=== PATIENT | male | born 1995 | race Caucasian/White ===

== ENCOUNTER 2018-04-02 14:00 | Emergency (ER) | payer OTHER, SELFPAY ==
[2018-04-02 14:01] VITALS: BP 121/82; PULSE 97; RESP 26; TEMP 36.6; O2SAT 100; BMI 17.4
--- NOTE | 2018-04-02 14:19 | NURSING ---
NO OLD EKGS
--- NOTE | 2018-04-02 14:41 | EKG12_ITS ---
Test Reason : CP Blood Pressure : / mmHG Vent. Rate : 092 BPM Atrial Rate : 092 BPM P-R Int : 130 ms QRS Dur : 094 ms QT Int : 348 ms P-R-T Axes : 070 080 055 degrees QTc Int : 430 ms Normal sinus rhythm Normal ECG Confirmed by MELANIA GARCIA, STACEY ([id number]), graphic editor ABEL JACKSON ([id number] on 04/04/2018 10:04:52 AM Referred By: ANNABELLE/JUSTUS Confirmed By:STACEY VELÁZQUEZ MD
--- NOTE | 2018-04-02 15:31 | ED.VIS.GEN ---
History of Present Illness Chief Complaint: Chest Pain Detail of Chief Complaint: While driving Informant: Patient Onset: Today Context: Sudden Onset Timing: Intermittent - Duration 2 hours. Patient states her eye made him think about the pain he developed pain again. Quality: Sharp dull Location: Left subclavian region Current Severity: Absent time of exam exacerbated by asking to describe pain. Maximum Severity: Severe Worsened by: Thinking about it Relieved by: Nothing Associated Symptoms: None and no radiation Narrative: Left subclavian chest pain that lasted 2 hours described as a dull aching sensation with no associated symptoms or radiation. No prior history of chest pain. There is no history of PE or DVT or any risk factors. There is no history of iliac disease at early age in the family and he has no known history of congenital heart problems. Nurse informed me that prior to me seeing him he was looking at the monitor became more anxious as he looked at the monitor. When asked if there is a history of anxiety or panic attacks he stated if it is nothing more than I will go home. I informed him that my question very specific asking if he has a history of anxiety, stress reaction or panic attacks. He replied that he is under stress. Prior similar symptoms: No Recent Illness/Hospitalization: No Past Medical History - Allergies and Home Meds Allergies/Adverse Reactions: Allergies No Known Allergies Allergy (Verified 04/02/18 14:04) Primary Care Physician: Liam Lawler MD [Primary Care Provider] - Past Medical History: - - Negative Surgical History: no surgical history Lives: With Family Smoking Status: Never smoker Alcohol: Occasional - 1-2 shots every 2 weeks Drugs: None Review of Systems General: Denies: Chills, Fever, Sweats Eyes: Denies: Visual changes - bilaterally, Diplopia ENT: Denies: Rhinorrhea, Sore throat Cardiovascular: Reports: Chest pain, Heart racing. Denies: Palpitations Respiratory: Denies: Dyspnea, Cough, Dyspnea on exertion, Orthopnea, Paroxysmal nocturnal dyspnea Gastrointestinal: Denies: Abdominal pain, Nausea, Vomiting, Diarrhea, Melena, Hematochezia Genitourinary: Denies: Dysuria, Hematuria, Frequency Musculoskeletal: Denies: Back pain, Extremity Pain Skin: Denies: Rash, Wounds Neurological: Denies: Headache, Weakness, Numbness Psych: Reports: Anxiety Hematologic: Denies: Easy bruising, Easy bleeding Allergy: Denies: Uticaria, Swelling of the mouth Physical Exam Vital Signs/Narrative: Vital Signs Temp Pulse Resp BP Pulse Ox 04/02/18 14:01 97.9 F 97 26 H 121/82 H 100 Inital Vital Signs reviewed: Yes General: Well nourished, Well developed, No Acute Distress Head: Normocephalic, Atraumatic. Negative for: Trauma, Tenderness Eyes: Perrl, EOMI. Negative for: Pale conjunctiva, Scleral icterus ENT: Moist mucous membranes, No rhinorrhea. Negative for: TM's clear, Sinus tenderness Neck: Supple, Nontender. Negative for: No lymphadenopathy, No JVD Cardiovascular: Regular rate, Regular rhythm, No murmurs, Normal S1, Normal S2. Negative for: S3 Respiratory: No distress, CTA bilaterally, Chest nontender. Negative for: Decreased Air Movement, Chest tenderness Abdomen: Soft, Nontender, Nondistended, Normal bowel sounds Extremities: Nontender, No edema, - - There is no asymmetry, swelling, discoloration, leg vein distention, palpable cords or tenderness along the distribution of the deep venous system. Skin: Normal color, No rash. Negative for: Cyanosis, Diaphoresis, Rash Neurological: Alert, Oriented x3, Cranial nerves II-XII grossly intact, Normal Strength, Normal Sensation Psychological: - - Thought content normal. Patient appears anxious Diagnostic/Tx/Re-eval Basic metabolic panel is unremarkable. - Rhythm Strip Rhythm Strip: Sinus Rhythm Rate: 93 Ectopy: None - EKG Initial EKG Interpretation: Sinus Rhythm - Ventricular rate 92. MA interval, QRS duration, QT interval and axis are normal. Prior: No Prior - Medical Decision Making Patient presents with chest pain that occurred while driving. Patient admits he is concerned about the chest pain and when he thinks about the chest pain the pain is worse. He omitted that he had a power drink. The nurse informed me of this. That may be because of his anxiousness or palpitations. Since his workup is unremarkable will discharge to home. Differential diagnosis is cardiac, anxiety, adverse reaction to power drink ED Disposition - Plan for ED Patient: Disposition: Home or Assisted Living Diagnosis: Left-sided chest pain, Anxiety Instructions: ED Chest Pain NonCardiac Referrals: Liam Lawler MD [Primary Care Provider] - As Needed
[2018-04-02 15:55] LABS: Anion Gap 7 (5-15); BUN 16 mg/dL (7-18); BUN/Creat Ratio 18.4 RATIO (10-20); Calcium,Total 9.1 mg/dL (8.5-10.1); Chloride 108 mmol/L (98-107); Creatinine, Serum 0.87 mg/dL (0.70-1.30); EST Glomerular Filtration Rate 116 mL/min (>60); Est Glom Filt Rate - Afr Amer 140 mL/min (>60); Estimated Creatinine Clearance 97.43 ml/min; Glucose 98 mg/dL (74-106); Potassium 3.5 mmol/L (3.5-5.1); Sodium Level 139 mmol/L (136-145)
[2018-04-02 16:05] VITALS: BP 131/79; PULSE 95; RESP 25; O2SAT 100
[2018-04-02 17:37] VITALS: BP 112/73; PULSE 97; RESP 14; O2SAT 97
== END 2018-04-02 17:38 | disposition home or self-care (01) ==
PROVIDERS: Emergency Provider Emergency Medicine; Family Provider Pediatrics; PCP Pediatrics
DX: R07.9 Chest pain, unspecified (principal); F41.9 Anxiety disorder, unspecified
CPT/HCPCS: 80048; 93005; 99285; A4216